=== PATIENT | female | born 1945 | race Two or more races ===

== ENCOUNTER 2018-07-24 16:04 | Emergency (ER) | payer MEDICARE, OTHER ==
[~2018-07-24] VITALS: Ht 157.5 cm; Wt 55.8 kg
[2018-07-24 18:54] LABS: Basophils # (auto) 0.1 uL; Basophils % (auto) 0.9 % (0.0-2.0); Eosinophils # (auto) 0.4 uL; Hemoglobin 12.7 g/dL (12.2-16.2); Mean Corpuscular Hemoglobin 29.9 pg (28.0-32.0); Mean Corpuscular Volume 89.9 fL (80.0-100.0); Monocytes # (auto) 0.7 uL; Monocytes % (auto) 7.9 % (0.0-12.0); Red Cell Distribution Width 13.7 % (11.8-14.3); White Blood Cell 9.1 10^3/uL (4.4-10.8)
[2018-07-24 18:56] LABS: Eosinophils % (auto) 4.5 % (0.0-7.0); Hematocrit 38.2 % (36.0-46.0); Lymphocytes # (auto) 1.7 uL; Lymphocytes % (auto) 19.1 % (10.0-50.0); Mean Corpuscular Hgb Conc. 33.3 g/dL (32.0-36.0); Neutrophils # (auto) 6.1 uL; Neutrophils % (auto) 67.6 % (37.0-80.0); Nucleated Red Blood Cells % 0.1 %; Red Blood Cells 4.25 10^6/uL (4.0-5.20)
[2018-07-24 19:08] LABS: Albumin 3.8 g/dL (3.4-5.0); BUN/Creatinine Ratio 30.3
[2018-07-24 19:10] LABS: Bilirubin, Total 0.2 mg/dL (0.2-1.0); Total Protein 7.9 g/dL (6.4-8.2)
[2018-07-24 19:32] LABS: Platelet Count (auto) 472 10^3/uL (140-450)
[2018-07-25 00:05] VITALS: BP 155/68
== END 2018-07-25 00:06 | disposition home or self-care (01) ==
LOC: ER 16:24
DX: R60.0 Localized edema (principal); Z90.49 Acquired absence of other specified parts of digestive tract; Z90.710 Acquired absence of both cervix and uterus
CPT/HCPCS: 36415; 80053; 85025; 93971